=== PATIENT | male | born 2000 | race Caucasian/White ===

== ENCOUNTER → 2020-05-08 | Outpatient (CLI) | payer BC ==
--- NOTE | 2020-05-08 16:35 | MR ---
EXAMINATION TYPE: MR brain wo/w con DATE OF EXAM: 05/08/2020 COMPARISON: None HISTORY: Ansomia, loss of smell x 2 years CONTRAST: Performed utilizing 7.5 mL intravenous Gadavist gadolinium contrast. TECHNIQUE: Multiplanar, multiecho imaging on a 3.0 Aura magnet is performed through the brain. Stud y is performed within 24 hours of arrival to the hospital. The craniovertebral junction is normal. The pituitary is normal. Diffusion-weighted imaging is performed. No abnormal hyperintensity is present to suggest an acute i ntracranial infarct or acute ischemic change. There are 5 punctate hyperintensities in the periventricular white matter. Four lie within the pariet al-occipital junction on the left. The fifth and largest is within the subcortical white matter right frontal lobe. This measures 0.6 cm AP, series 501 image 20. Findings are nonspecific. Consider migra ine headaches within the differential. Multiple sclerosis is not excluded. This is greater than expec ray for microvascular ischemic change at this age. No abnormal enhancement is evident within these le sions or elsewhere. Ventricles and sulci are appropriate for the patient age. Mucosal thickening is through ethmoid air cells and maxillary sinuses. Some mucosal thickening is wit hin the left frontal sinus. Mastoid air cells appear clear. IMPRESSIONS: 1. Small white matter changes discussed above. Differential diagnosis would primarily include migrain e headaches and multiple sclerosis. 2. Scattered mucosal thickening within the maxillary sinuses and to a lesser degree within ethmoid ai r cells and left frontal sinus.
== END | disposition home or self-care (01) ==
LOC: RADMRIMAIN 12:52
PROVIDERS: ATTEND Otolaryngology Facial Plastic Surgery
DX: R90.82 White matter disease, unspecified (principal); J34.89 Other specified disorders of nose and nasal sinuses
CPT/HCPCS: 70553